=== PATIENT | male | born 1965 | race African-American/Black ===

== ENCOUNTER → 2016-06-22 | Emergency (ER) | payer BC ==
[~2016-06-22] VITALS: Ht 167.6 cm; Wt 118.2 kg
[~2016-06-22] MED LIST: ANTIVERT 25MG25 MG PO; BP MED; CELEXA10 MG PO; CEPHALEXIN500 M1 PO; CITALOPRAM10 MG PO; CITALOPRAM20 MG PO; COUMADIN 5MG5 MG/TAB PO; CREON 120000 U-1 ECC PO; DEPRESSION; DOXYCYCLINE 10100 MG PO; GLUCOPHAGE XR500 M1 PO; GLUCOPHAGE500 MG/TAB PO; GOUT MED; INDOCIN50 MG PO; INSLANT SQ; LANTUS100 U/ML SC; LANTUS100 U/ML SQ; LEVEMIR FLEX100 U/ML; LIPITOR 80MG80 MG PO; LISINOPRIL/HCTZ1 TA2 PO; LISINOPRIL2.5 MG PO; LORTAB 5/500 501 TAB PO; LORTAB 7.5/5001 TAB PO; LOVENOX 6060 MG/0.6 SQ; MEDROL 4MG DOSPA4 MG PO; MOTRIN800 MG PO; MULTI VITAMINS1 TAB; NICODERM C21 MG/PATC TOP; NORCO 325 MG-101 TAB PO; NOVOLOG FLEX100 U/ML SQ; PEPCID 20MG TAB20 MG PO; PERCOCET 325 MG1 TA2 PO; PRIL40 PO; PRINIVIL20 MG PO; PRINZIDE 12.5 M1 TA1 PO; PROCARDIA XL 6060 MG PO; TAMIFLU 75MG75 MG PO; TOPROL XL 50MG50 MG PO; TRESIBA FL200 UNIT/1 SQ; TRICOR145 MG PO; ULTRAM 50MG TAB50 MG; VICODIN 5/5001 UDTAB PO; XARELTO10 MG PO; XARELTO15 MG PO; XARELTO20 MG PO; ZITHROMAX Z-PA250 M1 PO; ZOFRAN 4MG T4 MG/TAB PO; ZYLOPRIM 100MG100 MG PO; [UNRECOGNIZED DRUG - REMARK]
[2016-06-22 18:19] VITALS: BP 131/80; TEMP 98.7
[2016-06-22 19:37] LABS: INFLUENZA B NEGATIVE
[2016-06-22 20:08] VITALS: PULSE 100
== END | disposition home or self-care (01) ==
LOC: COL.ER 17:26
PROVIDERS: Nurse Practitioner
DX: J10.1 Influenza due to other identified influenza virus with other respiratory manifestations (principal); E11.9 Type 2 diabetes mellitus without complications; Z79.4 Long term (current) use of insulin; I10 Essential (primary) hypertension; F17.210 Nicotine dependence, cigarettes, uncomplicated

== ENCOUNTER 2018-07-02 10:06 | Emergency (ER) | payer BC ==
[~2018-07-02] VITALS: Ht 167.6 cm; Wt 113.6 kg
[~2018-07-02 10:06] MED LIST changes: -MULTI VITAMINS1 TAB; +MULTI VITAMINS1 TAB PO
[2018-07-02 10:12] VITALS: BP 145/77; TEMP 97.6
[2018-07-02 10:42] LABS: BASO % 0.6 % (0.0-2.0); EOS # 0.1 (0.0-0.7); EOS % 2.2 % (0-4.0); GRAN % 62.4 % (42.2-75.2); HEMATOCRIT 47.1 % (42.0-52.0); HEMOGLOBIN 15.8 g/dl (13.5-18.0); LYMPH # 1.8 (1.2-3.4); LYMPH % 28.6 % (20.0-51.0); MEAN CELL VOLUME 89 fl (80.0-100.0); MEAN CORPUSCULAR HEMOGLOBIN 30 pg (27.0-31.0); MEAN CORPUSCULAR HGB CONC 34 g/dl (33.0-37.0); MEAN PLATELET VOLUME 10.3 fl (7.4-10.4); MONO # 0.4 (0.1-0.6); MONO % 5.7 % (1.7-9.3); PLATELET COUNT 173 K/mm3 (130-400); RED BLOOD COUNT 5.29 M/mm3 (4.20-5.60); REDCELL DISTRIBUTION WIDTH-CV 13.2 % (11.5-14.5)
[2018-07-02 10:53] LABS: ALBUMIN 3.9 gm/dL (3.5-5.0); BILIRUBIN,TOTAL 0.6 mg/dL (0.0-1.0); CALCIUM 9.5 mg/dL (8.4-10.2); CREATININE, serum 1.11 mg/dL (0.66-1.25); POTASSIUM 4.2 mmol/L (3.4-5.0); TOTAL PROTEIN 7.1 gm/dL (6.4-8.2); URIC ACID 5.5 mg/dL (3.5-8.5)
[2018-07-02 10:55] LABS: C-REACTIVE PROTEIN 0.5 mg/dL (0.0-0.9)
[2018-07-02 11:06] LABS: ERYTHROCYTE SEDIMENTATION RATE 4 mm/hr (0-30)
[2018-07-02] MEDS ORDERED: DOXYCYCLINE 10100 MG PO (11:20)
[2018-07-02] MEDS ORDERED: CRUTCHES MC (11:20)
[2018-07-02] MEDS ORDERED: NORCO 325 MG-7.1 TAB PO (11:20)
[2018-07-02 11:25] VITALS: PULSE 96
== END 2018-07-02 11:25 | disposition home or self-care (01) ==
LOC: COL.ER 10:06
PROVIDERS: Physician Assistant
DX: M79.671 Pain in right foot (principal); E11.9 Type 2 diabetes mellitus without complications; F17.210 Nicotine dependence, cigarettes, uncomplicated; F12.90 Cannabis use, unspecified, uncomplicated; I48.91 Unspecified atrial fibrillation; I10 Essential (primary) hypertension; E78.5 Hyperlipidemia, unspecified; Z79.4 Long term (current) use of insulin; Z87.442 Personal history of urinary calculi; Z79.01 Long term (current) use of anticoagulants
CPT/HCPCS: J1815

== ENCOUNTER 2019-06-07 16:15 | Day surgery (SDC) | payer BC ==
[~2019-06-07] VITALS: Ht 167.6 cm; Wt 109.7 kg
[~2019-06-07 16:15] MED LIST changes: +CRUTCHES MC; +NORCO 325 MG-7.1 TAB PO
[2019-06-07 17:10] LABS: BASO # 0.1 (0.0-0.2); BASO % 0.5 % (0.0-2.0); EOS # 0.1 (0.0-0.7); EOS % 0.5 % (0-4.0); GRAN # 7.9 (1.4-6.5); GRAN % 79.8 % (42.2-75.2); HEMATOCRIT 47.9 % (42.0-52.0); LYMPH # 1.3 (1.2-3.4); LYMPH % 13.3 % (20.0-51.0); MEAN CELL VOLUME 90 fl (80.0-100.0); MEAN CORPUSCULAR HEMOGLOBIN 30 pg (27.0-31.0); MEAN CORPUSCULAR HGB CONC 33 g/dl (33.0-37.0); MEAN PLATELET VOLUME 10.4 fl (7.4-10.4); MONO # 0.5 (0.1-0.6); MONO % 5.5 % (1.7-9.3); PLATELET COUNT 175 K/mm3 (130-400); RED BLOOD COUNT 5.32 M/mm3 (4.20-5.60); REDCELL DISTRIBUTION WIDTH-CV 13.4 % (11.5-14.5)
[2019-06-07 17:23] LABS: ALBUMIN 4.4 gm/dL (3.5-5.0); BILIRUBIN,TOTAL 0.8 mg/dL (0.0-1.0); CALCIUM 9.8 mg/dL (8.4-10.2); CREATININE, serum 1.16 (0.66-1.25); POTASSIUM 3.7 mmol/L (3.4-5.0); TOTAL PROTEIN 7.7 gm/dL (6.4-8.2)
[2019-06-07 20:02] LABS: COLLECTION METHOD CLEAN CATCH
[2019-06-07 20:40] LABS: MUCOUS Present /lpf; PH 6 (5-8); SQUAMOUS EPITHELIAL None Seen /hpf; URINE APPEARANCE Clear; URINE BACTERIA None Seen /hpf; URINE BILIRUBIN Negative (NEGATIVE); URINE BLOOD Negative (NEGATIVE); URINE COLOR Yellow; URINE GLUCOSE 3+ (NEGATIVE); URINE KETONE Trace (NEGATIVE); URINE LEUKOCYTE ESTERASE Negative (NEGATIVE); URINE NITRATE Negative (NEGATIVE); URINE PROTEIN(semi-quant) 2+ (NEGATIVE); URINE RBC 0-2 /hpf; URINE UROBILINOGEN Negative (NEGATIVE); URINE WBC 0-2 /hpf
[2019-06-07 22:25] VITALS: BP 143/80; PULSE 111; TEMP 99.8
[2019-06-07 22:38] VITALS: BP 147/81; PULSE 112
[2019-06-07 22:53] VITALS: BP 142/85; PULSE 108
[2019-06-07 23:08] VITALS: BP 141/82; PULSE 113
--- NOTE | 2019-06-07 23:09 | NUR ---
PATIENT UP TO ROOM 327 AT 2220. ALERT AND ORIENTED. DROWSY. AROUSES TO SOUND. ASSESSMENT COMPLETED. STATES PAIN IS AT A 2. HR ELEVATED 111. BP 140s/80s. O2 SATS 88 ON ROOM AIR. STARTED ON 2 L O2 VIA NC. FAMILY AT BEDSIDE BRIEFLY. DENIES NAUSEA. NO FURTHER NEEDS AT THIS TIME. WILL CONTINUE TO MONITOR.
[2019-06-07 23:23] VITALS: BP 134/81; PULSE 110
[2019-06-07 23:53] VITALS: BP 153/81; PULSE 111
[2019-06-08 01:23] VITALS: BP 118/71; PULSE 111
[2019-06-08 02:23] VITALS: BP 116/70; PULSE 111
--- NOTE | 2019-06-08 07:15 | NUR ---
Report from Maggy LEYVA. Dr. Coffey in to see pateint see computer for orders.
[2019-06-08 07:18] VITALS: BP 132/88; PULSE 104; TEMP 99.3
--- NOTE | 2019-06-08 09:36 | NUR ---
PT RESTING IN BED, INDEPENDENT IN ROOM THIS AM. PT TAKING PO MEDS FOR PAIN CONTROL PT REPORTS EFFECTIVE AT THIS TIME.
[2019-06-08 11:12] VITALS: BP 113/52; PULSE 104; TEMP 99
--- NOTE | 2019-06-08 11:49 | NUR ---
SW met with the patient to discuss discharge plan. The patient lives in [place] with his , Eve (ph#[phone]). He reports independence with ADLs and has a cane, walker, and wheelchair available if needed. The patient's PCP is Dr. Kam Mcdonald and he receives his medications at [facility]. He reports no difficulties obtaining his meds. The patient does not have advanced directives and he was not interested in completing them at this time. The patient plans to return home with his upon discharge. No additional needs at this time.
[2019-06-08] MEDS ORDERED: NORCO 325 MG-7.1 TAB PO (12:31)
--- NOTE | 2019-06-08 13:07 | NUR ---
DISCHARGE INSTRUCTIONS PROVIDED TO PT AND DAUGHTER. QUESTIONS SOLICITED AND ANSWERED. PT LEFT AMBULATORY WITH STAFF.
== END 2019-06-08 13:11 | disposition home or self-care (01) ==
LOC: COL.ER 16:15 → SDCO 20:32 → JCC 20:40 → SDCO 06-08 13:11
PROVIDERS: Emergency Medicine
DX: K35.80 Unspecified acute appendicitis (principal); F17.210 Nicotine dependence, cigarettes, uncomplicated; Z79.899 Other long term (current) drug therapy; M10.9 Gout, unspecified; I48.91 Unspecified atrial fibrillation; Z86.711 Personal history of pulmonary embolism; Z79.01 Long term (current) use of anticoagulants; E11.9 Type 2 diabetes mellitus without complications; Z79.4 Long term (current) use of insulin
CPT/HCPCS: OP; A4216; J0330; J0690; J0696; J1815; J2250; J2270; J2405; J2704; J2765; J3010; J7030; Q9967

== ENCOUNTER 2021-07-26 13:59 | Emergency (ER) | payer BC ==
[~2021-07-26] VITALS: Ht 167.6 cm; Wt 97.7 kg
[2021-07-26 14:15] VITALS: BP 153/105; TEMP 99
[2021-07-26 15:07] VITALS: PULSE 119
== END 2021-07-26 15:07 | disposition home or self-care (01) ==
LOC: COL.ER 13:59
DX: R22.41 Localized swelling, mass and lump, right lower limb (principal); Z86.711 Personal history of pulmonary embolism; Z86.718 Personal history of other venous thrombosis and embolism; Z79.01 Long term (current) use of anticoagulants; Z87.442 Personal history of urinary calculi; E11.9 Type 2 diabetes mellitus without complications; Z79.4 Long term (current) use of insulin; Z79.899 Other long term (current) drug therapy

== ENCOUNTER → 2022-03-21 | Outpatient (CLI) | payer BC | LOC: COL.VAS 03-08 12:45 | DX: I82.411 Acute embolism and thrombosis of right femoral vein (principal) ==